=== PATIENT | male | born 1980 | race Hispanic/Latino ===

== ENCOUNTER 2019-01-29 18:07 | Emergency (ER) | payer SELFPAY ==
[2019-01-29] MEDS ORDERED: Adacel (T-DAP) 0.5 ML SYRINGE ONE (19:02)
[2019-01-29] MEDS ORDERED: Fluorescein Opthalmic Strip ONE (19:02)
[2019-01-29] MEDS ORDERED: Proparacaine 0.5% Opth 15 ML BOT ONE (19:02)
[2019-01-29] MEDS ORDERED: Tobramycin/dex OPTH 2.5 ML BOT ONE (19:46)
[2019-01-29] MEDS ORDERED: Tobramycin Sulfate 0.3% Ophth Susp 5 ml Bottle L EYE SCH (20:00)
== END 2019-01-29 20:15 | disposition home or self-care (01) ==
LOC: ERS 18:07
DX: S05.02XA Injury of conjunctiva and corneal abrasion without foreign body, left eye, initial encounter (principal); X58.XXXA Exposure to other specified factors, initial encounter
CPT/HCPCS: 90471; 90715

== ENCOUNTER 2022-03-20 19:46 | Emergency (ER) | payer SELFPAY ==
[2022-03-20] MEDS ORDERED: Fluorescein Opthalmic Strip ONE (20:25)
[2022-03-20] MEDS ORDERED: Proparacaine 0.5% Opth 15 ML BOT ONE (20:31)
== END 2022-03-20 21:46 | disposition home or self-care (01) ==
LOC: ERS 19:46
DX: T15.02XA Foreign body in cornea, left eye, initial encounter (principal); X58.XXXA Exposure to other specified factors, initial encounter
CPT/HCPCS: 99283